=== PATIENT | male | born 1960 | race African-American/Black ===

== ENCOUNTER 2017-09-17 21:30 | Observation (INO) | payer OTHER ==
[~2017-09-17] VITALS: Ht 180.3 cm; Wt 85.9 kg
[2017-09-17 22:27] LABS: CREATININE 1.4 mg/dL (0.6-1.3); POTASSIUM 2.8 mEq/L (3.7-5.4)
[2017-09-17 22:28] LABS: HEMATOCRIT 44.5 % (38.0-50.0); MCH 27.3 PG (29.0-34.0); MCHC 33.5 G/DL (30.0-36.0); MCV 81.5 FL (86-99); MEAN PLAT.VOLUME 8.6 uM^3 (9.0-12.4); PLATELET COUNT 272 K/uL (156-360); RBC DIS.WIDTH-CV 13.1 % (11.8-14.6); RBC DIS.WIDTH-SD 38.6 % (39-53); RED BLOOD COUNT 5.46 M/uL (4.00-5.50); WHITE BLOOD COUNT 9.1 K/uL (4.1-10.2)
[2017-09-17 22:40] LABS: CHLORIDE 107 mEq/L (99-109); POTASSIUM 2.8 mEq/L (3.7-5.4); SODIUM 141 mEq/L (136-147)
[2017-09-17 22:42] LABS: GLUCOSE 172 mg/dL (70-99)
[2017-09-17 22:43] LABS: ANION GAP 15 MEQ/L (2-14)
[2017-09-17 22:44] LABS: TOTAL BILIRUBIN 0.3 mg/dL (0.0-1.0)
[2017-09-17 22:45] LABS: SERUM ETHYL ALCOHOL 22 mg/dL
[2017-09-17 22:46] LABS: ALKALINE PHOSPHATASE 53 IU/L (3-129); GFR ESTIMATE (CALCULATED) > 59 mL/min/
[2017-09-17 22:47] LABS: DIRECT BILIRUBIN 0.2 mg/dL (0.0-0.3); UREA NITROGEN (BUN) 15 mg/dL (9-23)
[2017-09-17 22:49] LABS: LIPASE 67 U/L (1.0-51.0)
[2017-09-18 03:27] LABS: AMPHETAMINE NEGATIVE (500 ng/mL); BARBITURATES NEGATIVE (200 ng/mL); BENZODIAZEPINES NEGATIVE (150 ng/mL); COCAINE NEGATIVE (150 ng/mL); INTERNAL CONTROLS VALID? YES; METHADONE NEGATIVE (200 ng/mL); METHAMPHETAMINE NEGATIVE (500 ng/mL); OPIATES (MORPHINE) NEGATIVE (100 ng/mL); OXYCODONE NEGATIVE (100 ng/mL); PHENCYCLIDINE NEGATIVE (25 ng/mL); PROPOXYPHENE NEGATIVE (300 ng/mL); THC CANNABINOIDS NEGATIVE (50 ng/mL); TRICYCLIC ANTIDEPRESSANTS NEGATIVE (300 ng/mL)
[2017-09-18 03:33] VITALS: BP 136/72
[2017-09-18 06:01] LABS: ANION GAP 7 MEQ/L (2-14); CHLORIDE 109 MEQ/L (99-109); GFR ESTIMATE (CALCULATED) > 59 mL/min/; GLUCOSE 126 mg/dL (70-99); SAMPLE HEMOLYSIS CHECK 0; SAMPLE ICTERIC CHECK 0; SAMPLE LIPEMIA CHECK 0; SODIUM 139 MEQ/L (136-147); UREA NITROGEN (BUN) 10 mg/dL (9-23)
[2017-09-18 06:02] LABS: POTASSIUM 4.9 MEQ/L (3.7-5.4)
[2017-09-18 06:54] LABS: Estimated Average Glucose 126 mg/dL (70-123)
[2017-09-18 07:16] VITALS: BP 130/64
[2017-09-18] MEDS ORDERED: COZAAR25 MG PO (07:21)
[2017-09-18 11:53] VITALS: BP 125/65
[2017-09-18 11:56] LABS: ALKALINE PHOSPHATASE 37 IU/L (3-129); ANION GAP 4 MEQ/L (2-14); CHLORIDE 110 MEQ/L (99-109); GFR ESTIMATE (CALCULATED) > 59 mL/min/; GLUCOSE 120 mg/dL (70-99); POTASSIUM 4.1 MEQ/L (3.7-5.4); SAMPLE HEMOLYSIS CHECK 0; SAMPLE ICTERIC CHECK 0; SAMPLE LIPEMIA CHECK 0; SODIUM 143 MEQ/L (136-147); TOTAL BILIRUBIN 0.4 MG/DL (0.0-1.0); UREA NITROGEN (BUN) 9 mg/dL (9-23)
== END 2017-09-18 13:21 | disposition home or self-care (01) ==
LOC: EME → EDBD 21:30 → EME 21:30 → EDOF 09-18 01:50 → ENRESERV 09-18 01:56 → 5WEST 09-18 03:17
PROVIDERS: Emergency Medicine; Hospitalist; Nurse Practitioner Adult Health
DX: N17.9 Acute kidney failure, unspecified (principal); E86.0 Dehydration; E87.6 Hypokalemia; E87.2 Acidosis; I10 Essential (primary) hypertension; J32.0 Chronic maxillary sinusitis; Z82.49 Family history of ischemic heart disease and other diseases of the circulatory system; K44.9 Diaphragmatic hernia without obstruction or gangrene; R73.9 Hyperglycemia, unspecified; Z83.3 Family history of diabetes mellitus
CPT/HCPCS: 70450; 71275; 80047; 80048; 80053; 80076; 83036; 83605; 83690; 85027; 87040; 93005; 99281; 99285; G0378; G0480; J2405; J3480; J7030